=== PATIENT | male | born 1975 | race Caucasian/White ===

== ENCOUNTER 2016-12-01 07:22 | Emergency (ER) | payer SELFPAY ==
[2016-12-01 07:56] LABS: #Basophils 0.1 thou/uL (0.0-0.2); #Eosinphils 0.1 thou/uL (0.0-0.7); #Monocytes 0.4 thou/uL (0.11-0.59); #Neutrophils 4.7 thou/uL (1.40-6.50); %Basophils 1.9 % (0.0-1.0); %Eosinophils 1.1 % (0.0-10.0); %Monocytes 6.8 % (0.0-10.0); %Neutrophils 74.2 % (42.0-75.0); Hemoglobin 16.1 g/dL (14.0-18.0); Mean Corpuscular HGB CONC 34.1 g/dL (32.0-36.0); Mean Corpuscular Volume 85.2 fl (80.0-94.0); Mean Platelet Volume 8.3 fL (7.4-10.4); Platelet Count 202 thou/uL (130-400); RBC Distribution Width 12.7 % (11.5-14.5); Red Blood Cell (RBC) Count 5.54 mill/uL (4.70-6.10); White Blood Cell (WBC) Count 6.4 thou/uL (4.8-10.8)
[2016-12-01 08:13] LABS: CKMB 0.4 ng/mL (0-6.6); Troponin I Less than 0.010 ng/mL (< 0.028)
[2016-12-01 09:11] LABS: ALT (SGPT) 27 U/L (8-55); AST (SGOT) 16 U/L (5-34); Albumin 4.5 g/dL (3.5-5.0); Alkaline Phosphatase 85 U/L (40-150); Anion Gap 13 mmol/L (10-20); BUN (Urea Nitrogen) 18 mg/dL (8.9-20.6); Bilirubin, Total 0.7 mg/dL (0.2-1.2); Calc. Creatinine Clearance 0 mL/min (70-130); Calcium 9.2 mg/dL (7.8-10.44); Carbon Dioxide 24 mmol/L (22-29); Chloride 108 mmol/L (98-107); Estimated GFR-MDRD Greater than 90; Globulin 2.6 g/dL (2.4-3.5); Glucose 109 mg/dL (70-105); Potassium 4.5 mmol/L (3.5-5.1); Protein, Total 7.1 g/dL (6.0-8.3); Sodium 140 mmol/L (136-145)
--- NOTE | 2016-12-01 09:27 | CT ---
CT OF THE BRAIN WITHOUT CONTRAST: Date: 12/01/[address] was done emergently for evaluation of speech deficits and mental status changes. FINDINGS: The ventricles are normal in size with no shift. No intracranial bleeding, mass, or sign of acute st roke was appreciated. There is perhaps a little more atrophy than expected in the cerebellar region for age. The calvarium appears intact. The visible paranasal sinuses are clear. IMPRESSION: No acute intracranial findings Preliminary report discussed with Dr. Loza at 0755 hours on 12/01/16. CODE CR. POS: HOME
--- NOTE | 2016-12-01 09:31 | RAD ---
PORTABLE CHEST: Date: 12/01/16 An AP portable film at 0753 hours shows a normal sized heart and clear lungs. No infiltrate or effus ion seen. There is no vascular congestion or edema. The mediastinum appears normal and the trachea i s midline. The bony structures are unremarkable. IMPRESSION: No acute thoracic finding. POS: HOME
== END 2016-12-01 09:14 | disposition home or self-care (01) ==
LOC: BURERS 07:22
DX: R11.10 Vomiting, unspecified (principal); F43.0 Acute stress reaction; Z72.0 Tobacco use
CPT/HCPCS: 36416; 70450; 71010; 80053; 82553; 83690; 84484; 85025; 93005